=== PATIENT | female | born 1995 | race African-American/Black ===

== ENCOUNTER → 2016-02-14 | Outpatient (CLI) | payer OTHER ==
[~2016-02-14] MED LIST: BCPILLS PO; VNTHFA/IN INH
[2016-02-18 02:46] LABS: CHLAMYDIA TRACH RNA*** DETECTED (NOT DETECTED); GC (NEIS GONORRHOEAE)RNA** NOT DETECTED (NOT DETECTED); HSV TYPE 1 DNA Not Detected (Not Detected); HSV TYPE 1&2 DNA SOURCE Plasma; HSV TYPE 2 DNA Not Detected (Not Detected)
== END | disposition home or self-care (01) ==
LOC: C.LABBC 13:44
PROVIDERS: ATTEND Nurse Practitioner Adult Health
DX: R73.03 Prediabetes (principal); Z20.2 Contact with and (suspected) exposure to infections with a predominantly sexual mode of transmission

== ENCOUNTER → 2016-03-20 | Outpatient (CLI) | payer OTHER | END | disposition home or self-care (01) | LOC: MERGE 14:44 → C.PAPS 14:44 | PROVIDERS: ATTEND Nurse Practitioner Adult Health | DX: Z12.4 Encounter for screening for malignant neoplasm of cervix (principal) ==

== ENCOUNTER → 2016-03-20 | Outpatient (CLI) | payer OTHER ==
[2016-03-21 20:54] LABS: CHLAMYDIA TRACH RNA*** NOT DETECTED (NOT DETECTED); GC (NEIS GONORRHOEAE)RNA** NOT DETECTED (NOT DETECTED)
== END | disposition home or self-care (01) ==
LOC: C.LABSPEC 10:54
PROVIDERS: ATTEND Nurse Practitioner Adult Health
DX: Z20.2 Contact with and (suspected) exposure to infections with a predominantly sexual mode of transmission (principal)

== ENCOUNTER 2016-09-13 17:14 | Emergency (ER) | payer OTHER ==
[~2016-09-13] VITALS: Ht 167.6 cm; Wt 107.2 kg
[2016-09-13 17:18] VITALS: TEMP 37; Ht 167.6 cm; Wt 107.2 kg
[2016-09-13] MEDS ORDERED: ALUMINUM/MAGNESIUM SUSP 30 ML UDC PO STA (17:31)
--- NOTE | 2016-09-13 17:32 | EMERGENCY ROOM VISIT NOTE ---
History Report prepared by Scribe: Lynnette Bui Under the Supervision of: Dr. Maia Prince D.O. First contact with patient: 17:22 Chief Complaint: CARDIAC ASSESSMENT Stated Complaint: CHEST PAINS Nursing Triage Summary: Pt presents with c/o substernal cp "for years, but it used to just last for an hour or two. This time it started yesterday. I had it checked last year and they thought it was asthma." Denies sob, lightheadedness or dizziness. +Nausea. History of Present Illness The patient is a 20 year old female who presents to the Emergency Room with complaints of persistent chest pain for the past day. She states she has experienced similar symptoms before over the past few years and saw her doctor approximately 1 year ago for the pain. She had an MRI but states it was unremarkable and her doctor told her she most likely had asthma. She was given an inhaler, which provided no relief. She has an appointment with her primary care physician next week to follow up. Since yesterday, her pain has returned and is constant. She rates her discomfort as a 6/10 in severity. She vomited yesterday and experienced nausea. She denies any fevers, cough or cold symptoms , dizziness, lightheadedness or diaphoresis. She denies any family history of cardiac problems. The patient admits to a recent car ride that was approximately 3 hours long. She is currently on control. She denies any abdominal pain, diarrhea or constipation. She has had no urinary symptoms. The patient notes she did get a new job where she is on her feet more often and her legs have been more swollen than usual. Source of History: patient Onset: 1 day [employer] Position: chest Symptom Intensity: 6/10 Timing: other (persistent) Associated Symptoms: + nausea, + vomiting, No fevers, No diaphoresis, No cough (cough or cold symptoms), No SOB, No abdominal pain, No diarrhea, No urinary symptoms Review of Systems See HPI for pertinent positives & negatives. A total of 10 systems reviewed and were otherwise negative. Past Medical & Surgical Medical Problems: (1) Asthma Family History Asthma Diabetes mellitus Hypertension Social History Smoking Status: Never Smoker Alcohol Use: occasionally Drug Use: none Marital Status: single Housing Status: lives with roommate Occupation Status: employed Current/Historical Medications Scheduled Control Pills ( Control Pills), 1 TAB PO DAILY Scheduled PRN Albuterol Hfa (Ventolin Hfa), 1-2 PUFFS INH DIRECTED PRN for ASTHMA Allergies Coded Allergies: No Known Allergies (Unverified , 09/13/16) Physical Exam Vital Signs Date Time Temp Pulse Resp B/P (MAP) Pulse Ox O2 Delivery O2 Flow Rate FiO2 09/13/16 18:54 82 18 115/74 98 Room Air 09/13/16 17:18 37.0 85 18 127/87 99 Room Air Physical Exam GENERAL: Patient is alert, well appearing, well nourished, no distress, non- toxic EYE EXAM: normal conjunctiva, PERRL and EOM's grossly intact OROPHARYNX: no exudate, no erythema, lips, buccal mucosa, and tongue normal and mucous membranes are moist NECK: supple, no nuchal rigidity, no adenopathy, non-tender LUNGS: Clear to auscultation. Normal chest wall mechanics HEART: no murmurs, S1 normal and S2 normal ABDOMEN: abdomen soft, non-tender, normo-active bowel sounds, no masses, no rebound or guarding. BACK: Back is symmetrical on inspection and there is no deformity, no midline tenderness, no CVA tenderness. SKIN: no rashes and no bruising UPPER EXTREMITIES: upper extremities are grossly normal. LOWER EXTREMITIES: No pitting edema. NEURO EXAM: Normal sensorium, cranial nerves II-XII [grossly] intact, normal speech, no [gross] weakness of arms, no [gross] weakness of legs. [No drift. Finger to nose intact. Gross sensation intact.] Medical Decision & Procedures ER Provider Diagnostic Interpretation: Radiology results have been interpreted by the radiologist and reviewed by me. ABDOMEN LIMITED (US) HISTORY: Pain. Nausea. epigastric pain. COMPARISON: None. FINDINGS: Pancreas: The pancreas demonstrates a normal echotexture. Liver: Fatty infiltration Gallbladder: Gallstone versus porcelain gallbladder. Normal caliber gallbladder wall is 2 mm. No pericholecystic fluid. CBD: 4 mm Right kidney: No hydronephrosis. IMPRESSION: Gallstone versus porcelain gallbladder. Normal caliber bile ducts. Fatty infiltration of liver. The above report was generated using voice recognition software. It may contain grammatical, syntax or spelling errors. Electronically signed by: Alfonzo Smith M.D. 09/13/2016 6:34 PM CHEST ONE VIEW PORTABLE CLINICAL HISTORY: chest pain dyspnea COMPARISON STUDY: No previous studies for comparison. FINDINGS: The bones soft tissues and hemidiaphragms are normal. The cardiomediastinal silhouette is normal. The lungs are clear. The pulmonary vasculature is normal. IMPRESSION: Negative chest. The above report was generated using voice recognition software. It may contain grammatical, syntax or spelling errors. Electronically signed by: Alfonzo Smith M.D. 09/13/2016 6:54 PM Laboratory Results 09/13/16 17:50 Red Blood Count 4.91, Mean Corpuscular Volume 77.8, Mean Corpuscular Hemoglobin 25.5, Mean Corpuscular Hemoglobin Concent 32.7, Mean Platelet Volume 10.2, Neutrophils (%) (Auto) 41.5, Lymphocytes (%) (Auto) 46.1, Monocytes (%) (Auto) 11.1, Eosinophils (%) (Auto) 1.1, Basophils (%) (Auto) 0.1, Neutrophils # (Auto ) 3.49, Lymphocytes # (Auto) 3.88, Monocytes # (Auto) 0.93, Eosinophils # (Auto ) 0.09, Basophils # (Auto) 0.01 09/13/16 17:50 Test 09/13/16 17:50 09/13/16 17:55 White Blood Count 8.41 K/uL (4.8-10.8) Red Blood Count 4.91 M/uL (4.2-5.4) Hemoglobin 12.5 g/dL (12.0-16.0) Hematocrit 38.2 % (37-47) Mean Corpuscular Volume 77.8 fL (80-100) Mean Corpuscular Hemoglobin 25.5 pg (25-34) Mean Corpuscular Hemoglobin Concent 32.7 g/dl (32-36) Platelet Count 227 K/uL (130-400) Mean Platelet Volume 10.2 fL (7.4-10.4) Neutrophils (%) (Auto) 41.5 % Lymphocytes (%) (Auto) 46.1 % Monocytes (%) (Auto) 11.1 % Eosinophils (%) (Auto) 1.1 % Basophils (%) (Auto) 0.1 % Neutrophils # (Auto) 3.49 K/uL (1.4-6.5) Lymphocytes # (Auto) 3.88 K/uL (1.2-3.4) Monocytes # (Auto) 0.93 K/uL (0.11-0.59) Eosinophils # (Auto) 0.09 K/uL (0-0.5) Basophils # (Auto) 0.01 K/uL (0-0.2) RDW Standard Deviation 41.6 fL (36.4-46.3) RDW Coefficient of Variation 14.7 % (11.5-14.5) Immature Granulocyte % (Auto) 0.1 % Immature Granulocyte # (Auto) 0.01 K/uL (0.00-0.02) D-Dimer 190 ug/L FEU (0-500) Anion Gap 6.0 mmol/L (3-11) Est Creatinine Clear Calc Drug Dose 156.1 ml/min Estimated GFR () 142.5 Estimated GFR (Non- 123.0 BUN/Creatinine Ratio 16.0 (10-20) Calcium Level 9.1 mg/dl (8.5-10.1) Total Bilirubin 0.3 mg/dl (0.2-1) Aspartate Amino Transf (AST/SGOT) 12 U/L (15-37) Alanine Aminotransferase (ALT/SGPT) 24 U/L (12-78) Alkaline Phosphatase 64 U/L (45-117) Troponin I < 0.015 ng/ml (0-0.045) Total Protein 7.5 gm/dl (6.4-8.2) Albumin 3.7 gm/dl (3.4-5.0) Globulin 3.8 gm/dl (2.5-4.0) Albumin/Globulin Ratio 1.0 (0.9-2) Lipase 284 U/L (73-393) Human Chorionic Gonadotropin, Qual NEG (NEG) Bedside Urine Test NEG (NEG) Laboratory results per my review. Medications Administered Medications (Trade) Dose Ordered Sig/Lizabeth Route Start Time Stop Time Status Last Admin Dose Admin Al Hydroxide/Mg Hydroxide (Maalox Susp) 30 ml NOW STAT PO 09/13/16 17:31 09/13/16 17:32 DC 09/13/16 17:54 30 ML ECG Indication: chest pain Rate (beats per minute): 79 Rhythm: sinus rhythm Findings: no acute ischemic change, no ectopy, other (normal axis, normal intervals) ED Course 1723: The patient was evaluated in room B12. A complete history and physical exam was performed. 173: Maalox Susp 30 ml PO. 185: I reevaluated the patient. I discussed the patients test results and my recommendation she be eventually evaluated by general surgery and she verbalized complete understanding and agreement. 1903: I discussed the patients case with Ed Adame General Surgery. The patient will be further evaluated as he will see her in the office next week. 1905: I reevaluated the patient. I discussed my conversation with Dr. Lawton and her discharge instructions and she verbalized complete understanding and agreement. Medical Decision Prior records/ancillary studies reviewed. Triage Nursing notes reviewed. The patient's history was concerning for chest pain. Differential diagnosis: Etiologies such as cardiac ischemia, aortic dissection, pulmonary embolism, pneumonia, pneumothorax, musculoskeletal, infections, pericarditis, myocarditis , esophageal rupture, gastrointestinal, as well as others were entertained. Patient well-appearing here despite complaints. Patient with no risk factors for ACS or vascular etiology. Vital signs stable throughout and labs reassuring. Chest x-ray do not reveal any acute pathology, however ultrasound suggestive of cholelithiasis versus porcelain gallbladder. This was discussed with patient and then with surgery on-call as precaution will follow-up with the patient in the office as an outpatient and discuss cholecystectomy. Patient verbalized understanding was agreeable with plan. No evidence of acute cholecystitis, ascending cholangitis, concurrent pancreatitis, perforation, GI bleed. Discussed with patient follow-up with surgery, symptoms to watch and return for, she verbalized understanding was agreeable with plan. Medication Reconcilliation Current Medication List: was personally reviewed by me Blood Pressure Screening Patient's blood pressure: Normal blood pressure Blood pressure disposition: Did not require urgent referral Consults Time Called: 1899 Consulting Physician: Ed Adame General Surgery Returned Call: 1903 I discussed the patients case with Ed Adame General Surgery. The patient will be further evaluated as he will see her in the office next week. Impression Primary Impression: Chest pain Additional Impressions: Epigastric pain Cholelithiases Scribe Attestation The scribe's documentation has been prepared under my direction and personally reviewed by me in its entirety. I confirm that the note above accurately reflects all work, treatment, procedures, and medical decision making performed by me. Departure Information Dispostion Home / Self-Care Referrals No Doctor, Assigned (PCP) Patient Instructions My [facility] [address] Additional Instructions Please follow up with the surgeon as listed on the paperwork. Please eat a light bland diet and make sure you're drinking plenty of fluids. If you have any worsening pain, develop fevers, vomiting, black or bloody stools, or you have any other new or concerning symptoms, please return the emergency room. Problem Qualifiers Primary Impression: Chest pain Chest pain type: unspecified Qualified Codes: R07.9 - Chest pain, unspecified Additional Impressions: Cholelithiases Cholelithiasis location: gallbladder Cholecystitis presence: without cholecystitis Biliary obstruction: without biliary obstruction Qualified Codes: K80.20 - Calculus of gallbladder without cholecystitis without obstruction
[2016-09-13] MEDS ORDERED: VNTHFA/IN INH (17:46)
[2016-09-13] MEDS ORDERED: BCPILLS PO (17:46)
[2016-09-13 18:07] LABS: BASO % 0.1 %; BASO ABS # 0.01 K/uL (0-0.2); COMPLETE YES; EOS % 1.1 %; HEMATOCRIT 38.2 % (37-47); IG% 0.1 %; LYMPH % 46.1 %; LYMPH ABS # 3.88 K/uL (1.2-3.4); MEAN CELL VOLUME 77.8 fL (80-100); MEAN CORPUSCULAR HEMOGLOBIN 25.5 pg (25-34); MEAN CORPUSCULAR HGB CONC 32.7 g/dl (32-36); MEAN PLATELET VOLUME 10.2 fL (7.4-10.4); MONO % 11.1 %; NEUT % 41.5 %; PLATELET COUNT 227 K/uL (130-400); RED BLOOD COUNT 4.91 M/uL (4.2-5.4); WHITE BLOOD COUNT 8.41 K/uL (4.8-10.8)
[2016-09-13 18:26] LABS: CALCIUM 9.1 mg/dl (8.5-10.1); CREATININE 0.7 mg/dl (0.60-1.20); POTASSIUM 3.8 mmol/L (3.5-5.1)
[2016-09-13 18:30] LABS: PREG INTERNAL NEGATIVE QC NEG CLEAR BACKGROUND; PREG INTERNAL POSITIVE QC POS CONTROL LINE
--- NOTE | 2016-09-13 18:35 | DIAGNOSTIC IMAGING REPORT ---
ABDOMEN LIMITED (US) HISTORY: Pain. Nausea. epigastric pain. COMPARISON: None. FINDINGS: Pancreas: The pancreas demonstrates a normal echotexture. Liver: Fatty infiltration Gallbladder: Gallstone versus porcelain gallbladder. Normal caliber gallbladder wall is 2 mm. No pericholecystic fluid. CBD: 4 mm Right kidney: No hydronephrosis. IMPRESSION: Gallstone versus porcelain gallbladder. Normal caliber bile ducts. Fatty infiltration of liver. The above report was generated using voice recognition software. It may contain grammatical, syntax or spelling errors. Electronically signed by: Alfonzo Smith M.D. 09/13/2016 6:34 PM Dictated Date/Time: 09/13/2016 6:32 PM
[2016-09-13 18:54] VITALS: BP 115/74; PULSE 82; O2SAT 98
--- NOTE | 2016-09-13 18:55 | DIAGNOSTIC IMAGING REPORT ---
CHEST ONE VIEW PORTABLE CLINICAL HISTORY: chest pain dyspnea COMPARISON STUDY: No previous studies for comparison. FINDINGS: The bones soft tissues and hemidiaphragms are normal. The cardiomediastinal silhouette is normal. The lungs are clear. The pulmonary vasculature is normal. IMPRESSION: Negative chest. The above report was generated using voice recognition software. It may contain grammatical, syntax or spelling errors. Electronically signed by: Alfonzo Smith M.D. 09/13/2016 6:54 PM Dictated Date/Time: 09/13/2016 6:54 PM
== END 2016-09-13 19:17 | disposition home or self-care (01) ==
LOC: C.EDB 17:15
DX: R07.9 Chest pain, unspecified (principal); R10.13 Epigastric pain; K80.20 Calculus of gallbladder without cholecystitis without obstruction; K76.0 Fatty (change of) liver, not elsewhere classified